=== PATIENT | male | born 1995 | race African-American/Black ===

== ENCOUNTER 2020-09-08 11:31 | Emergency (ER) | payer BC, MEDICAID, OTHER ==
[~2020-09-08] VITALS: Ht 167.6 cm; Wt 55.0 kg
--- NOTE | 2020-09-08 12:06 | PHYS DOC ---
General Adult EDM: Chief Complaint: BLOOD IN URINE HPI: HPI: 24-year-old male presents with blood in his urine. He noticed a small amount of bright red blood in his urine after having sexual intercourse yesterday. This morning, he had a little bit of brownish tint to the urine which he assumes was also blood. He denies any discomfort or pain. He is not concerned about an STD. He is in a monogamous relationship. He is concerned about a potential bladder infection as he does not drink very much water. The patient has a history of testicular torsion with surgical repair about a year ago. He denies any pain similar to this. He denies fever or chills. Review of Systems: Review of Systems: Constitutional: Denies fever or chills Eyes: Denies change in visual acuity HENT: Denies nasal congestion or sore throat Respiratory: Denies cough or shortness of breath Cardiovascular: Denies chest pain or edema GI: Denies abdominal pain, nausea, vomiting, bloody stools or diarrhea : Hematuria Musculoskeletal: Denies back pain or joint pain Integument: Denies rash Neurologic: Denies headache, focal weakness or sensory changes Endocrine: Denies polyuria or polydipsia Lymphatic: Denies swollen glands Psychiatric: Denies depression or anxiety Allergies: Allergies: Allergies Coded Allergies Type Severity Reaction Last Updated Verified No Known Drug Allergies 09/08/20 No Physical Exam: PE: Constitutional: Well developed, well nourished, no acute distress, non-toxic appearance. [] HENT: Normocephalic, atraumatic, bilateral external ears normal, oropharynx moist, no oral exudates, nose normal. [] Eyes: PERRLA, EOMI, conjunctiva normal, no discharge. [] Neck: Normal range of motion, no tenderness, supple, no stridor. [] Cardiovascular:Heart rate regular rhythm, no murmur [] Lungs & Thorax: Bilateral breath sounds clear to auscultation [] Abdomen: Bowel sounds normal, soft, no tenderness, no masses, no pulsatile masses. [] Skin: Warm, dry, no erythema, no rash. [] Back: No tenderness, no CVA tenderness. [] Extremities: No tenderness, no cyanosis, no clubbing, ROM intact, no edema. [] Neurologic: Alert and oriented X 3, normal motor function, normal sensory function, no focal deficits noted. [] Psychologic: Affect normal, judgement normal, mood normal. : Descended testicles bilaterally, circumcised, no lesions or discharge. [] EKG: EKG: [] Radiology/Procedures: Radiology/Procedures: [] Heart Score: C/O Chest Pain: N/A Risk Factors: Risk Factors: DM, Current or recent (<one month) smoker, HTN, HLP, family history of CAD, obesity. Risk Scores: Score 0 - 3: 2.5% MACE over next 6 weeks - Discharge Home Score 4 - 6: 20.3% MACE over next 6 weeks - Admit for Clinical Observation Score 7 - 10: 72.7% MACE over next 6 weeks - Early Invasive Strategies Course & Med Decision Making: Course & Med Decision Making Pertinent Labs and Imaging studies reviewed. (See chart for details) The patient's urinalysis is significant for blood. It is negative for infection. I have spoken with the patient told him that this could be shedding of the lining of the bladder causing a little bit of bleeding. He is not having any significant pain. I further advised him to follow-up in 1 week to have his urinalysis repeated to make sure the blood resolves. If he has further complications he can return the emergency room. He is stable for discharge at this time. [] Hira Disclaimer: Hira Disclaimer: This electronic medical record was generated, in whole or in part, using a voice recognition dictation system. Departure Departure: Impression: Primary Impression: Hematuria Qualified Codes: R31.9 - Hematuria, unspecified Disposition: HOME / SELF CARE / HOMELESS Condition: STABLE Referrals: PCP,FARZANEH (PCP) Patient Instructions: Hematuria, Adult VANITA MAYEN DO September 08, 2020 12:06
[2020-09-08 13:15] LABS: BILIRUBIN,URINE NEG (NEG); CLARITY,URINE CLEAR; COLOR,URINE YELLOW; GLUCOSE,URINE NEG (NEG); NITRITE,URINE NEG (NEG)
[2020-09-08 13:18] LABS: BACTERIA,URINE 0 /HPF (0-FEW); RBC,URINE >40 /HPF (0-2); SQUAMOUS EPITHELIAL CELL,UR OCC /LPF
[2020-09-08 13:33] VITALS: BP 118/76
== END 2020-09-08 13:35 | disposition home or self-care (01) ==
LOC: ER 11:31
DX: R31.9 Hematuria, unspecified (principal)
CPT/HCPCS: 81001; 99283

== ENCOUNTER 2021-08-19 17:28 | Emergency (ER) | payer MEDICAID ==
[~2021-08-19] VITALS: Ht 167.6 cm; Wt 55.0 kg
[2021-08-19 17:38] VITALS: BP 108/51
[2021-08-19] MEDS ORDERED: cefTRIAXone IM 500 MG VIAL. IM ONE (18:45)
[2021-08-19] MEDS ORDERED: metroNIDAZOLE 500 MG TABLET PO ONE (18:45)
[2021-08-19] MEDS ORDERED: AZITHROMYCIN 250 MG TABLET. PO ONE (18:45)
--- NOTE | 2021-08-19 18:48 | PHYS DOC ---
Past History Past Medical History: Other Additional Past Medical Histor: LEFT TESTICULAR TORSION 2019 (JYOTI RAMOS APRN) Past Surgical History: Other Additional Past Surgical Histo: TORTION REPAIR (JYOTI RAMOS APRN) Alcohol Use: None (JYOTI RAMOS APRN) General Adult EDM: Chief Complaint: SEXUALLY TRANSMITTED DISEASE HPI: HPI: Patient is a 25-year-old male presents with concerns of STD. Patient states that he cheated on his girlfriend last week and she came in yesterday and was treated for gonorrhea. Patient denies any symptoms. Denies any other medical history. (JYOTI RAMOS APRN) Review of Systems: Review of Systems: ROS At least 10 ROS systems have been reviewed and are negative except as documented in the HPI. General: Negative except as outlined in HPI above. Skin: Negative except as outlined in HPI above. HEENT: Negative except as outlined in HPI above. Neck: Negative except as outlined in HPI above. Respiratory: Negative except as outlined in HPI above.. Cardiovascular: Negative except as outlined in HPI above. Abdomen: Negative except as outlined in HPI above. : Negative except as outlined in HPI above. Back/MSK: Negative except as outlined in HPI above. Neuro: Negative except as outlined in HPI above. Psych: Negative except as outlined in HPI above. (JYOTI RAMOS APRN) Allergies: Allergies: Allergies Coded Allergies Type Severity Reaction Last Updated Verified No Known Drug Allergies 09/08/20 No (JYOTI RAMOS APRN) Physical Exam: PE: Constitutional: Well developed, well nourished, no acute distress, non-toxic appearance. [] HENT: Normocephalic, atraumatic, bilateral external ears normal, oropharynx moist, no oral exudates, nose normal. [] Eyes: PERRLA, EOMI, conjunctiva normal, no discharge. [] Neck: Normal range of motion, no tenderness, supple, no stridor. [] Cardiovascular:Heart rate regular rhythm, no murmur [] Lungs & Thorax: Bilateral breath sounds clear to auscultation [] Abdomen: Bowel sounds normal, soft, no tenderness, no masses, no pulsatile alfredo s. [] Skin: Warm, dry, no erythema, no rash. [] Back: No tenderness, no CVA tenderness. [] Extremities: No tenderness, no cyanosis, no clubbing, ROM intact, no edema. [] Neurologic: Alert and oriented X 3, normal motor function, normal sensory function, no focal deficits noted. [] Psychologic: Affect normal, judgement normal, mood normal. [] (JYOTI RAMOS APRN) Current Patient Data: Vital Signs: Vital Signs Date Time Temp Pulse Resp B/P (MAP) Pulse Ox O2 Delivery O2 Flow Rate FiO2 08/19/21 17:38 97.0 89 18 108/51 (70) 97 Room Air (JYOTI RAMOS APRN) EKG: EKG: [] (JYOTI RAMOS APRN) Radiology/Procedures: Radiology/Procedures: [] (JYOTI RAMOS APRN) Heart Score: C/O Chest Pain: No Risk Factors: Risk Factors: DM, Current or recent (<one month) smoker, HTN, HLP, family history of CAD, obesity. Risk Scores: Score 0 - 3: 2.5% MACE over next 6 weeks - Discharge Home Score 4 - 6: 20.3% MACE over next 6 weeks - Admit for Clinical Observation Score 7 - 10: 72.7% MACE over next 6 weeks - Early Invasive Strategies (JYOTI RAMOS APRN) Course & Med Decision Making: Course & Med Decision Making Pertinent Labs and Imaging studies reviewed. (See chart for details) [] 25-year-old male presents with concerns for STD. Patient had unprotected sex within the new partner last week. Patient states his girlfriend came in and was told she had gonorrhea. Patient is requesting to be treated prophylacti joseline for STDs. Urine sample was obtained and tested for GC and chlamydia. Patient given azithromycin, Rocephin, Flagyl. Advised patient to abstain from sexual activity to prevent reinfecting his partner. Patient states he understands discharge instructions. (JYOTI RAMOS APRN) Course & Med Decision Making Did not see or evaluate patient. Did not discuss patient with COFFEE TASTER. Generally agree with COFFEE TASTER's work-up and disposition per note (YOLANDA FRANCIS MD) Dragon Disclaimer: Dragon Disclaimer: This electronic medical record was generated, in whole or in part, using a voice recognition dictation system. (JYOTI RAMOS APRN) Departure Departure: Impression: Primary Impression: Screening for STDs (sexually transmitted diseases) Disposition: 01 HOME / SELF CARE / HOMELESS Condition: STABLE Referrals: PCP,NO (PCP) Patient Instructions: Sexually Transmitted Disease Additional Instructions: You were seen in the emergency room for concerns of STD. You were treated prophylactically. Do not have sex for the next 7 days to avoid reinfection. You need to inform any partners that you have had so that they can have treatment as well. We will contact you if your results are positive. EMERGENCY DEPARTMENT GENERAL DISCHARGE INSTRUCTIONS Thank you for coming to [facility] (ED) today and trusting us with you care. We trust that you had a positivie experience in our Emergency Department. If you wish to speak to the department management, you may call the director at [phone]. YOUR FOLLOW UP INSTRUCTIONS ARE FOLLOWS: 1. Do you have a private Doctor? If you do not have a private doctor, please ask for a resource list of physicians or clinics that may be able to assist you with follow up care. 2. The Emergency Physician has interpreted your x-rays. The X-Ray specialist will also review them. If there is a change in the findings, you will be notified in 48 hours when at all possible. 3. A lab test or culture has been done, your results will be reviewed and you will be notified if you need a change in treatment. ADDITIONAL INSTRUCTIONS AND INFORMATION: 1. Your care today has been supervised by a physician who is specially trained in emergency care. Many problems require more than one evaluation for a complete diagnosis a nd treatment. We recommend that you schedule your follow up appointment as recommended to ensure complete treatment of you illness or injury. If you are unable to obtain follow up care and continue to have a problem, or if your condition worsens, we recommend that you return to the ED. 2. We are not able to safely determine your condition over the phone nor are we able to give sound medical advice over the phone. For these safety reasons, if you call for medical advice we will ask you to come to the ED for further evaluation. 3. If you have any questions regarding these discharge instructions please call the ED at [phone]. SAFETY INFORMATION: In the interest of safety, wellness, and injury prevention; we encourage you to wear your sealbelt, if you smoke; quite smoking, and we encourage family to use a protective helmet for bicycling and other sporting events that present an increased risk for head injury. IF YOUR SYMPTOMS WORSEN OR NEW SYMPTOMS DEVELOP, OR YOU HAVE CONCERNS ABOUT YOUR CONDITION; OR IF YOUR CONDITION WORSENS WHILE YOU ARE WAITING FOR YOUR FOLLOW UP APPOINTMENT; EITHER CONTACT YOUR PRIMARY CARE DOCTOR, THE PHYSICIAN WHOSE NAME AND NUMBER YOU WERE GIVEN, OR RETURN TO THE ED IMMEDIATELY. JYOTI RAMOS APRN August 19, 2021 18:48 YOLANDA FRANCIS MD August 19, 2021 23:09
== END 2021-08-19 19:19 | disposition home or self-care (01) ==
LOC: ER 17:28
DX: Z11.3 Encounter for screening for infections with a predominantly sexual mode of transmission (principal)
CPT/HCPCS: 36415; 87491; 87591; 96372; 99283; J0696